=== PATIENT | female | born 1960 | race Caucasian/White ===

== ENCOUNTER → 2017-02-26 14:07 | Emergency (ER) | payer OTHER ==
[~2017-02-26 14:07] MED LIST: Ciprofloxacin TAB* 500 MG PO ONE; NS 0.9% 1000 ML* 1,000 ML IV ONE; metroNIDAZOLE TAB* 250 MG ONE; metroNIDAZOLE TAB* 250 MG PO ONE
[2017-02-26 15:39] LABS: Urine Bacteria Absent (Absent); Urine Bilirubin Negative (Negative); Urine Glucose Negative (Negative); Urine Nitrite Negative (Negative)
--- NOTE | 2017-02-26 16:11 | RAD ---
INDICATION: Right flank abdominal pain. COMPARISON: There are no prior studies available for comparison. TECHNIQUE: A CT scan of the abdomen and pelvis was performed without intravenous or oral contrast. Contiguous axial sections were obtained from the lung bases through the symphysis pubis. Images were reconstructed in the coronal and sagittal planes. FINDINGS: The lung bases are clear. No pleural effusion is present. The liver and spleen are normal in size. The liver is decreased in attenuation most consistent with fatty infiltration. No significant focal hepatic abnormality is seen. No calcified gallstones are noted. The pancreas appears to be within normal limits. The adrenal glands and kidneys are normal in size. No renal calculi or hydronephrosis is seen. No ureteral or bladder calculi are seen. The aorta is normal in caliber without significant calcific plaque. No significant enlarged retroperitoneal lymph nodes are seen. There is a small hiatal hernia present. The stomach, small and large bowel appear nondistended. The appendix is slightly prominent measuring up to 6 mm in diameter without gross evidence for surrounding inflammatory changes. There is mild sigmoid diverticulosis. There is thickening of the wall of the proximal sigmoid colon and stranding in the surrounding mesenteric fat. These findings are nonspecific although would be suggestive of diverticulitis. No abscess is seen. There is a small amount of free intraperitoneal fluid in the pelvis. No free intraperitoneal air is seen. There is a small periumbilical hernia containing fat. The uterus is anteverted and normal in size. No significant focal osseous abnormality is seen. IMPRESSION: NONSPECIFIC THICKENING OF THE WALL OF THE SIGMOID COLON WITH ADJACENT INTERSTITIAL STRANDING MOST CONSISTENT WITH DIVERTICULITIS ALTHOUGH THIS DOES NOT APPEAR TO CORRELATE WITH THE PATIENT'S CLINICAL HISTORY THEREFORE RECOMMEND FOLLOW-UP COLONOSCOPY FOR FURTHER EVALUATION TO EXCLUDE A COLON MASS.
[2017-02-26 17:17] LABS: Hematocrit 38 % (35-47); Hemoglobin 12.4 g/dl (12.0-16.0); Mean Corpuscular HGB Conc 33 g/dl (31-36); Mean Corpuscular Hemoglobin 27 pg (27-31); Mean Corpuscular Volume 83 fL (80-97); Mean Platelet Volume 7 um3 (7.4-10.4); Red Blood Count 4.57 10^6/ul (4.0-5.4); Red Cell Distribution Width 14 % (10.5-15); White Blood Count 13.4 10^3/ul (3.5-10.8)
[2017-02-26 17:33] LABS: ALT 16 U/L (7-52); AST 15 U/L (13-39); Albumin 3.7 g/dL (3.2-5.2); Alkaline Phosphatase 68 U/L (34-104); Anion Gap 6 mmol/L (2-11); BUN/Creatinine Ratio 14.8 (8-20); Blood Urea Nitrogen 13 mg/dL (6-24); C Reactive Protein 131.32 mg/L (< 5.00); CO2 Carbon Dioxide 27 mmol/L (22-32); Calcium 9.2 mg/dL (8.6-10.3); Chloride 101 mmol/L (101-111); EGFR African American 85.2 (>60); EGFR Non-African American 66.2 (>60); Globulin 3.1 g/dL (2-4); Glucose 99 mg/dL (70-100); Lipase < 10 U/L (11.0-82.0); Potassium 4.1 mmol/L (3.5-5.0); Sodium 134 mmol/L (133-145); Total Protein 6.8 g/dL (6.4-8.9)
[2017-02-26 19:37] VITALS: BP 130/73
--- NOTE | 2017-02-26 21:54 | ED ---
Paty Oro Matthew, scribed for Maik Ferguson MD on 02/26/17 at 1607 . Abdominal Pain/Female - HPI Summary HPI Summary: A 56 y/o female presents to the ED with constant lower abdominal pain since 3 days ago. The pain is rated 8-9/10 in severity. Associated symptoms constipation - 3 days, distended abdomen, right leg pain described as sciatica, general weakness, fever - 100.2, and right flank pain since 1 week ago. She denies urinary symptoms, nausea, and vomiting. The pain is worse with ambulation and bending. The patient had a small BM this morning. She normally moves her bowel once a day. Hx of uterine fibroids. She states that she's gained an usually amount of weight in her abdomen over the last year. - History of Current Complaint Chief Complaint: EDAbdPain Stated Complaint: ABD PAIN Time Seen by Provider: 02/26/17 14:48 Hx Obtained From: Patient ?: No Onset/Duration: Lasting Days, Still Present Timing: Constant Severity Initially: Moderate Severity Currently: Moderate Pain Intensity: 7 Pain Scale Used: 0-10 Numeric Location: Diffuse - lower abdominal Radiates: No Associated Signs and Symptoms: Positive: Fever - 100.2, Back Pain - RT Flank pain - since 1 week ago, Constipation - 3 days, Other: - right leg pain; general weakness; distended abdomen. Negative: Urinary Symptoms, Nausea, Vomiting, Diarrhea Allergies/Adverse Reactions: Allergies Allergy/AdvReac Type Severity Reaction Status Date / Time Corticosteroids Allergy Dizziness Verified 02/26/17 15:27 Sulfa Antibiotics Allergy Unknown Verified 02/26/17 15:27 Reaction Details PMH/Surg Hx/FS Hx/Imm Hx Endocrine/Hematology History: Denies: Hx Diabetes History: Reports: Other Problems/Disorders - Hx of fibroids - Surgical History Surgery Procedure, Year, and Place: fibroids removed, D&C, lumpectomy Infectious Disease History: Denies: Traveled Outside the [place] in Last 30 Days - Social History Lives: With Family Hx Substance Use: No Substance Use Type: Reports: None Hx Tobacco Use: No Smoking Status (MU): Never Smoked Tobacco Review of Systems Positive: Fever Eyes: Negative ENT: Negative Cardiovascular: Negative Respiratory: Negative Gastrointestinal: Other - right flank pain - since a week ago; distended abdomen Positive: Abdominal Pain - diffuse lower abdominal pain. Negative: Vomiting, Diarrhea, Nausea Genitourinary: Negative Positive: Myalgia - right leg pain Skin: Negative Positive: Weakness - general weakness Psychological: Normal All Other Systems Reviewed And Are Negative: Yes Physical Exam Triage Information Reviewed: Yes Vital Signs On Initial Exam: Initial Vitals Temp Pulse Resp BP Pulse Ox 98.1 F 110 18 145/67 99 02/26/17 14:10 02/26/17 14:10 02/26/17 14:10 02/26/17 14:10 02/26/17 14:10 Vital Signs Reviewed: Yes Appearance: Positive: Well-Appearing, No Pain Distress Skin: Positive: Warm, Skin Color Reflects Adequate Perfusion, Dry Head/Face: Positive: Normal Head/Face Inspection Eyes: Positive: Normal ENT: Positive: Normal ENT inspection Neck: Positive: Supple, Nontender Respiratory/Lung Sounds: Positive: Clear to Auscultation, Breath Sounds Present Cardiovascular: Positive: RRR Abdomen Description: Positive: Nontender, Soft Bowel Sounds: Positive: Present Musculoskeletal: Positive: Strength/ROM Intact Neurological: Positive: Normal, Alert, Oriented to Person Place, Time Psychiatric: Positive: Affect/Mood Appropriate Diagnostics - Vital Signs Vital Signs Temp Pulse Resp BP Pulse Ox 02/26/17 14:10 98.1 F 110 18 145/67 99 - Laboratory Lab Results: Lab Results 02/26/17 02/26/17 02/26/17 Range/Units 14:49 17:05 17:05 WBC 13.4 H (3.5-10.8) 10^3/ul RBC 4.57 (4.0-5.4) 10^6/ul Hgb 12.4 (12.0-16.0) g/dl Hct 38 (35-47) % MCV 83 (80-97) fL MCH 27 (27-31) pg MCHC 33 (31-36) g/dl RDW 14 (10.5-15) % Plt Count 301 (150-450) 10^3/ul MPV 7 L (7.4-10.4) um3 Neut % (Auto) 76.6 (38-83) % Lymph % (Auto) 15.0 L (25-47) % Citrus % (Auto) 6.4 (1-9) % Eos % (Auto) 0.6 (0-6) % Baso % (Auto) 1.4 (0-2) % Absolute Neuts (auto) 10.3 H (1.5-7.7) 10^3/ul Absolute Lymphs (auto) 2.0 (1.0-4.8) 10^3/ul Absolute Monos (auto) 0.9 H (0-0.8) 10^3/ul Absolute Eos (auto) 0.1 (0-0.6) 10^3/ul Absolute Basos (auto) 0.2 (0-0.2) 10^3/ul Absolute Nucleated RBC 0.01 10^3/ul Nucleated RBC % 0.1 Sodium 134 (133-145) mmol/L Potassium 4.1 (3.5-5.0) mmol/L Chloride 101 (101-111) mmol/L Carbon Dioxide 27 (22-32) mmol/L Anion Gap 6 (2-11) mmol/L BUN 13 (6-24) mg/dL Creatinine 0.88 (0.51-0.95) mg/dL Est GFR ( Amer) 85.2 (>60) Est GFR (Non-Af Amer) 66.2 (>60) BUN/Creatinine Ratio 14.8 (8-20) Glucose 99 (70-100) mg/dL Lactic Acid (0.5-2.0) mmol/L Calcium 9.2 (8.6-10.3) mg/dL Total Bilirubin 1.00 (0.2-1.0) mg/dL AST 15 (13-39) U/L ALT 16 (7-52) U/L Alkaline Phosphatase 68 (34-104) U/L C-Reactive Protein 131.32 H (< 5.00) mg/L Total Protein 6.8 (6.4-8.9) g/dL Albumin 3.7 (3.2-5.2) g/dL Globulin 3.1 (2-4) g/dL Albumin/Globulin Ratio 1.2 (1-3) Lipase < 10 L (11.0-82.0) U/L Urine Color Yellow Urine Appearance Clear Urine pH 6.0 (5-9) Ur Specific [place] 1.009 L (1.010-1.030) Urine Protein Negative (Negative) Urine Ketones Negative (Negative) Urine Blood 2+ H (Negative) Urine Nitrate Negative (Negative) Urine Bilirubin Negative (Negative) Urine Urobilinogen Negative (Negative) Ur Leukocyte Esterase Trace H (Negative) Urine WBC (Auto) Trace(0-5/hpf) (Absent) Urine RBC (Auto) Trace(0-2/hpf) (Absent) Ur Squamous Epith Cells Present H (Absent) Urine Bacteria Absent (Absent) Urine Glucose Negative (Negative) 02/26/17 Range/Units 17:05 WBC (3.5-10.8) 10^3/ul RBC (4.0-5.4) 10^6/ul Hgb (12.0-16.0) g/dl Hct (35-47) % MCV (80-97) fL MCH (27-31) pg MCHC (31-36) g/dl RDW (10.5-15) % Plt Count (150-450) 10^3/ul MPV (7.4-10.4) um3 Neut % (Auto) (38-83) % Lymph % (Auto) (25-47) % Citrus % (Auto) (1-9) % Eos % (Auto) (0-6) % Baso % (Auto) (0-2) % Absolute Neuts (auto) (1.5-7.7) 10^3/ul Absolute Lymphs (auto) (1.0-4.8) 10^3/ul Absolute Monos (auto) (0-0.8) 10^3/ul Absolute Eos (auto) (0-0.6) 10^3/ul Absolute Basos (auto) (0-0.2) 10^3/ul Absolute Nucleated RBC 10^3/ul Nucleated RBC % Sodium (133-145) mmol/L Potassium (3.5-5.0) mmol/L Chloride (101-111) mmol/L Carbon Dioxide (22-32) mmol/L Anion Gap (2-11) mmol/L BUN (6-24) mg/dL Creatinine (0.51-0.95) mg/dL Est GFR ( Amer) (>60) Est GFR (Non-Af Amer) (>60) BUN/Creatinine Ratio (8-20) Glucose (70-100) mg/dL Lactic Acid 1.1 (0.5-2.0) mmol/L Calcium (8.6-10.3) mg/dL Total Bilirubin (0.2-1.0) mg/dL AST (13-39) U/L ALT (7-52) U/L Alkaline Phosphatase (34-104) U/L C-Reactive Protein (< 5.00) mg/L Total Protein (6.4-8.9) g/dL Albumin (3.2-5.2) g/dL Globulin (2-4) g/dL Albumin/Globulin Ratio (1-3) Lipase (11.0-82.0) U/L Urine Color Urine Appearance Urine pH (5-9) Ur Specific [place] (1.010-1.030) Urine Protein (Negative) Urine Ketones (Negative) Urine Blood (Negative) Urine Nitrate (Negative) Urine Bilirubin (Negative) Urine Urobilinogen (Negative) Ur Leukocyte Esterase (Negative) Urine WBC (Auto) (Absent) Urine RBC (Auto) (Absent) Ur Squamous Epith Cells (Absent) Urine Bacteria (Absent) Urine Glucose (Negative) Result Diagrams: 02/26/17 17:05 02/26/17 17:05 Lab Statement: Any lab studies that have been ordered have been reviewed, and results considered in the medical decision making process. - CT A/P CT CT Interpretation: Positive (See Comments) - IMPRESSION: NONSPECIFIC THICKENING OF THE WALL OF THE SIGMOID COLON WITH ADJACENT INTERSTITIAL STRANDING MOST CONSISTENT WITH DIVERTICULITIS ALTHOUGH THIS DOES NOT APPEAR TO CORRELATE WITH THE PATIENT'S CLINICAL HISTORY THEREFORE RECOMMEND FOLLOW-UP COLONOSCOPY FOR FURTHER EVALUATION TO EXCLUDE A COLON MASS. CT Interpretation Completed By: Radiologist Abdominal Pain Fem Course/Dx - Course Course Of Treatment: Ms. Renteria presented with several days of low abdominal pain that would bend her over at times and also right flank pain. She also C/O sciatic pain with she says she has had a long time. She had a slight leukocytosis, an elevated CRP and a low grade temperature. A CT was obtained and revealed no kidney stone and likely diverticulitis. She was given her first dose of antibiotics, a dose of both to go and a paper script for the rest as they were unsure whether they were staying in [facility] or not. - Diagnoses Provider Diagnoses: Diverticulitis Discharge - Discharge Plan Condition: Stable Disposition: HOME Prescriptions: Ciprofloxacin TAB* [Cipro Tab*] 500 mg PO BID #20 tab Metronidazole [Flagyl 500 MG TAB] 500 mg PO TID #30 tab Patient Education Materials: Ciprofloxacin (By mouth), Metronidazole (By mouth) , Diverticulitis (ED) Referrals: Non Staff,Doctor [Primary Care Provider] - Additional Instructions: Please follow-up with your primary care physician in 4 days. The documentation as recorded by the Paty mancia Matthew accurately reflects the service I personally performed and the decisions made by me, Maik Ferguson MD.
== END | disposition home or self-care (01) ==
LOC: ED 14:07
DX: K57.92 Diverticulitis of intestine, part unspecified, without perforation or abscess without bleeding (principal); R10.30 Lower abdominal pain, unspecified; R50.9 Fever, unspecified; M54.9 Dorsalgia, unspecified
CPT/HCPCS: 36415; 74176; 80053; 81003; 81015; 83605; 83690; 85025; 86140; 87086; 99283; A9270-GY